=== PATIENT | male | born 1985 | race Caucasian/White ===

== ENCOUNTER 2016-05-26 12:24 | Emergency (ER) | payer SELFPAY ==
[~2016-05-26 12:24] MED LIST: IBUP800T23 PO
[2016-05-26 12:25] VITALS: BP 132/77; PULSE 80; RESP 20; TEMP 97.6; O2SAT 100
== END 2016-05-26 14:00 | disposition left against medical advice (07) ==
LOC: NED 12:24
DX: R10.32 Left lower quadrant pain (principal)
CPT/HCPCS: 99281

== ENCOUNTER 2017-09-12 01:59 | Inpatient (IN) ==
[2017-09-12] MEDS ORDERED: fentaNYL Citrate Inj 100 MCG/2 ML Ampul ONE (02:05)
[2017-09-12 02:23] LABS: Baso # (Auto) 0.1 th/mm3 (0.0-0.2); Baso % (Auto) 0.3 % (0.0-2.0); Eos # (Auto) 0.2 th/mm3 (0.0-0.4); Hematocrit 43.5 % (39.0-51.0); Hemoglobin 15.1 gm/dL (13.0-17.0); Lymph # (Auto) 6.1 th/mm3 (1.0-4.8); Lymph % (Auto) 38.7 % (9.0-44.0); Mean Corpuscular HGB Conc 34.7 % (32.0-36.0); Mean Corpuscular Hemoglobin 30.3 pg (27.0-34.0); Mean Corpuscular Volume 87.2 fL (80.0-100.0); Mean Platelet Volume 7.3 fL (7.0-11.0); Mono # (Auto) 1.1 th/mm3 (0.0-0.9); Mono % (Auto) 7.1 % (0.0-8.0); Neut # (Auto) 8.3 th/mm3 (1.8-7.7); Neut % (Auto) 52.9 % (16.0-70.0); Platelet Count 352 th/mm3 (150-450); Red Blood Count 4.98 mil/mm3 (4.50-5.90); Red Cell Distribution Width 12.5 % (11.6-17.2); White Blood Count 15.6 th/mm3 (4.0-11.0)
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
[2017-09-12 02:35] LABS: Activated Partial Thrombo Time 22.5 sec (24.3-30.1); Prothrombin Time 10.5 sec (9.8-11.6)
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
[2017-09-12] MEDS ORDERED: Bisacodyl 10 MG Supp RECTAL PRN ×2 (03:03→05:30)
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
[2017-09-12] MEDS ORDERED: fentaNYL Citrate Inj 100 MCG/2 ML Ampul IV.PUSH PRN (03:30)
[2017-09-12] MEDS ORDERED: Chlorhexidine Gluconate 2% 1 Pack (2 Cloths) TOPICAL PRN (04:00)
[2017-09-12 04:01] LABS: Eosinophils 1 % (0-4); Lymphocytes 36 % (9-44); Monocytes 6 % (0-8); Platelet Estimate Normal (Normal); Platelet Morphology Normal (Normal); RBC Morphology Normal (Normal)
[2017-09-12] MEDS ORDERED: Post-op Orders (for Pharmacy) OTHER ONE (05:30)
[2017-09-12] MEDS ORDERED: Promethazine 25 MG Supp RECTAL PRN (05:30)
[2017-09-12] MEDS ORDERED: Naloxone Inj 0.4 MG/ML Vial IV.PUSH PRN (05:30)
[2017-09-12] MEDS: Chlorhexidine Gluconate 2% 1 Pack (2 Cloths) TOPICAL SCH (05:56)
[2017-09-12] MEDS ORDERED: ceFAZolin Inj 1,000 MG in Sodium Chlor 0.9% Inj 100 ML IV.SIG SCH (06:00)
[2017-09-12] MEDS ORDERED: Potassium Chlor 40 mEq Premix 40 MEQ/100 ML PIGGYBACK IV.SIG PRN ×2 (06:19)
[2017-09-12] MEDS ORDERED: Magnesium Oxide 400 MG Tablet PO PRN (06:19)
[2017-09-12] MEDS ORDERED: Potassium Phosphate 500 MG Soluble Tablet PO PRN ×2 (06:19)
[2017-09-12] MEDS ORDERED: Magnesium Sulfate Inj 4 GM in Sodium Chlor 0.9% Inj 92 ML IV.SIG PRN (06:19)
[2017-09-12] MEDS ORDERED: Sodium Phosphate Inj 30 MMOL in Sodium Chlor 0.9% Inj 250 ML IV.SIG PRN (06:19)
[2017-09-12] MEDS ORDERED: Potassium Phosphate Inj 30 MMOL in Sodium Chlor 0.9% Inj 250 ML IV.SIG PRN (06:19)
[2017-09-12] MEDS ORDERED: Magnesium Sulfate Inj 2 GM in Sodium Chlor 0.9% Inj 96 ML IV.SIG PRN (06:19)
[2017-09-12] MEDS ORDERED: Potassium Chloride 25 MEQ Effervescent Tablet PO PRN (06:19)
[2017-09-12] MEDS ORDERED: Ketamine Inj 500 MG/10 ML Vial ONE (06:49)
[2017-09-12 07:03] LABS: ABG Base Excess -10.1 mmol/L (-2-2); ABG PCO2 38 mmHg (38-42); ABG PO2 240 mmHG (61-120)
[2017-09-12 07:11] LABS: Baso % (Auto) 0.2 % (0.0-2.0); Hematocrit 40.6 % (39.0-51.0); Hemoglobin 13.7 gm/dL (13.0-17.0); Lymph # (Auto) 1.6 th/mm3 (1.0-4.8); Lymph % (Auto) 10.2 % (9.0-44.0); Mean Corpuscular HGB Conc 33.7 % (32.0-36.0); Mean Corpuscular Hemoglobin 29.9 pg (27.0-34.0); Mean Corpuscular Volume 88.6 fL (80.0-100.0); Mean Platelet Volume 7.1 fL (7.0-11.0); Mono # (Auto) 1.7 th/mm3 (0.0-0.9); Mono % (Auto) 10.8 % (0.0-8.0); Neut # (Auto) 12.4 th/mm3 (1.8-7.7); Neut % (Auto) 78.8 % (16.0-70.0); Platelet Count 302 th/mm3 (150-450); Red Blood Count 4.58 mil/mm3 (4.50-5.90); Red Cell Distribution Width 13.1 % (11.6-17.2); White Blood Count 15.7 th/mm3 (4.0-11.0)
[2017-09-12 07:38] LABS: Activated Partial Thrombo Time 24.3 sec (24.3-30.1)
[2017-09-12 07:40] LABS: Calcium 6.9 mg/dL (8.5-10.1); Carbon Dioxide 16.5 meq/L (21.0-32.0); Potassium 3.6 meq/L (3.5-5.1)
[2017-09-12] MEDS ORDERED: Ketamine Inj 50 MG/5 ML Syringe IV.PUSH ONE (07:46)
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
[2017-09-12] MEDS ORDERED: fentaNYL 10 mcg/mL Premix Drip 2,500 MCG/250 ML BAG IV.SIG PRN (08:46)
[2017-09-12] MEDS ORDERED: Propofol 1000 mg/100 ml Inj 1,000 MG/100 ML BOTTLE IV.CONT PRN (08:48)
[2017-09-12] MEDS ORDERED: Senna/Docusate Sodium 8.6/50 MG Tablet PO SCH ×2 (09:00)
[2017-09-12] MEDS ORDERED: Sodium Bicarbonate 8.4% Inj 50 MEQ/50 ML Syringe ONE (09:01)
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
[2017-09-12 09:30] LABS: Hematocrit 42.8 % (39.0-51.0); Hemoglobin 14.8 gm/dL (13.0-17.0); Mean Corpuscular HGB Conc 34.5 % (32.0-36.0); Mean Corpuscular Hemoglobin 30.2 pg (27.0-34.0); Mean Corpuscular Volume 87.5 fL (80.0-100.0); Mean Platelet Volume 7.3 fL (7.0-11.0); Platelet Count 283 th/mm3 (150-450); Red Blood Count 4.89 mil/mm3 (4.50-5.90); Red Cell Distribution Width 13.1 % (11.6-17.2); White Blood Count 6.9 th/mm3 (4.0-11.0)
[2017-09-12 09:48] LABS: Anion Gap 16 meq/L (5-15); Blood Urea Nitrogen 6 mg/dL (7-18); Calcium 6.3 mg/dL (8.5-10.1); Carbon Dioxide 21.4 meq/L (21.0-32.0); Chloride 110 meq/L (98-107); Glomerular Filtration Rate Greater Than 89 mL/min (>89); Glucose,Random 111 mg/dL (74-106); Potassium 3.9 meq/L (3.5-5.1); Sodium 147 meq/L (136-145)
[2017-09-12] MEDS: Chlorhexidine 0.12% Oral Kit 15 ML UDC OROPHARYNG SCH ×2 (10:04→21:11)
[2017-09-12] MEDS: fentaNYL 10 mcg/mL Premix Drip 2,500 MCG/250 ML BAG IV.SIG PRN (10:06)
[2017-09-12] MEDS: Propofol 1000 mg/100 ml Inj 1,000 MG/100 ML BOTTLE IV.CONT PRN (10:06)
[2017-09-12 10:08] LABS: Total Protein 4.3 g/dL (6.4-8.2)
[2017-09-12] MEDS: Enoxaparin Inj 40 MG/0.4 ML Syringe SQ SCH ×2 (10:17→10:21)
[2017-09-12] MEDS: Famotidine PF Inj 20 MG/2 ML Vial IV.PUSH SCH ×2 (10:17→21:12)
[2017-09-12] MEDS: Sod Chloride 0.9% Inj 1,000 ML IV.CONT SCH ×2 (10:17→17:04)
[2017-09-12] MEDS: Pantoprazole Inj 40 MG Vial IV.PUSH SCH ×2 (10:17→10:21)
[2017-09-12] MEDS: Piperacil/Tazo 4.5 GM Premix 4.5 GM/100 ML BAG IV.SIG SCH ×2 (10:19→17:41)
[2017-09-12 10:44] LABS: ABG Base Excess -2.9 mmol/L (-2-2); ABG PCO2 43 mmHg (38-42); ABG PO2 193 mmHg (61-120)
[2017-09-12] MEDS: Midazolam 50 MG/50 ML Inj 50 MG/50 ML BAG IV.CONT PRN ×3 (10:54→21:14)
[2017-09-12] MEDS ORDERED: RASS Change Order OTHER SCH (11:00)
[2017-09-12] MEDS: Multivitamin Inj 10 ML, Thiamine Inj 100 MG, Folic Acid Inj 1 MG in Dextrose 5%/NaCl 0.... IV.SIG SCH ×2 (11:23→11:24)
[2017-09-12] MEDS: Oral Hygiene Kit OROPHARYNG SCH ×2 (11:24→16:20)
[2017-09-12] MEDS ORDERED: Phenylephrine/NS 1000 MCG/10ML Syringe IV.PUSH ONE (12:00)
[2017-09-12] MEDS ORDERED: Normosol-R pH 7.4 Inj 3,000 ML IV.CONT ONE (12:00)
[2017-09-12] MEDS ORDERED: Succinylcholine Inj 100 MG/5 ML Syringe IV.PUSH ONE (12:00)
[2017-09-12] MEDS ORDERED: Lidocaine PF 1% Inj 5 ML Syringe INFILTRATN ONE (12:00)
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
[2017-09-12 14:33] LABS: Hematocrit 44.5 % (39.0-51.0); Hemoglobin 15.2 gm/dL (13.0-17.0)
[2017-09-12] MEDS: Sod Chloride 0.9% Inj 1,000 ML IV.SIG SCH ×2 (14:48→14:58)
[2017-09-12 19:43] LABS: Hematocrit 41.8 % (39.0-51.0); Hemoglobin 14.2 gm/dL (13.0-17.0)
[2017-09-13] MEDS: Piperacil/Tazo 4.5 GM Premix 4.5 GM/100 ML BAG IV.SIG SCH ×4 (00:44→18:00)
[2017-09-13] MEDS: fentaNYL 10 mcg/mL Premix Drip 2,500 MCG/250 ML BAG IV.SIG PRN ×2 (00:45→15:58)
[2017-09-13 04:37] LABS: Baso % (Auto) 0.1 % (0.0-2.0); Hematocrit 38.6 % (39.0-51.0); Hemoglobin 13.2 gm/dL (13.0-17.0); Lymph % (Auto) 9.4 % (9.0-44.0); Mean Corpuscular HGB Conc 34.1 % (32.0-36.0); Mean Corpuscular Volume 87.9 fL (80.0-100.0); Mean Platelet Volume 7.8 fL (7.0-11.0); Mono # (Auto) 1.7 th/mm3 (0.0-0.9); Neut # (Auto) 17.3 th/mm3 (1.8-7.7); Neut % (Auto) 82.5 % (16.0-70.0); Platelet Count 227 th/mm3 (150-450); Red Blood Count 4.39 mil/mm3 (4.50-5.90); Red Cell Distribution Width 13.3 % (11.6-17.2)
[2017-09-13 05:05] LABS: Calcium 6.4 mg/dL (8.5-10.1); Carbon Dioxide 24.3 meq/L (21.0-32.0); Potassium 4.5 meq/L (3.5-5.1)
[2017-09-13 05:24] LABS: Total Protein 4.6 g/dL (6.4-8.2)
[2017-09-13] MEDS: Oral Hygiene Kit OROPHARYNG SCH ×3 (05:42→15:59)
[2017-09-13] MEDS: Chlorhexidine Gluconate 2% 1 Pack (2 Cloths) TOPICAL SCH (05:44)
[2017-09-13 06:05] LABS: ABG Base Excess -1.9 mmol/L (-2-2); ABG PCO2 42 mmHg (38-42); ABG PO2 97 mmHg (61-120)
[2017-09-13] MEDS: Enoxaparin Inj 40 MG/0.4 ML Syringe SQ SCH (06:39)
[2017-09-13] MEDS: Midazolam 50 MG/50 ML Inj 50 MG/50 ML BAG IV.CONT PRN ×3 (07:11→23:57)
[2017-09-13] MEDS: Chlorhexidine 0.12% Oral Kit 15 ML UDC OROPHARYNG SCH ×2 (08:41→20:06)
[2017-09-13] MEDS: Sod Chloride 0.9% Inj 1,000 ML IV.CONT SCH ×2 (08:54→10:33)
[2017-09-13] MEDS: Famotidine PF Inj 20 MG/2 ML Vial IV.PUSH SCH ×2 (09:59→20:05)
[2017-09-13] MEDS: Multivitamin Inj 10 ML, Thiamine Inj 100 MG, Folic Acid Inj 1 MG in Dextrose 5%/NaCl 0.... IV.SIG SCH (10:32)
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
[2017-09-14] MEDS: Oral Hygiene Kit OROPHARYNG SCH ×4 (00:17→16:33)
[2017-09-14] MEDS: Piperacil/Tazo 4.5 GM Premix 4.5 GM/100 ML BAG IV.SIG SCH ×3 (01:38→21:08)
[2017-09-14] MEDS: Sod Chloride 0.9% Inj 1,000 ML IV.CONT SCH ×2 (01:41→16:33)
[2017-09-14] MEDS: Chlorhexidine Gluconate 2% 1 Pack (2 Cloths) TOPICAL SCH (05:44)
[2017-09-14] MEDS: Enoxaparin Inj 40 MG/0.4 ML Syringe SQ SCH (05:45)
[2017-09-14 05:50] LABS: ABG Base Excess 1.7 mmol/L (-2-2); ABG PCO2 40 mmHg (38-42); ABG PO2 175 mmHg (61-120)
[2017-09-14 06:16] LABS: Baso % (Auto) 0.2 % (0.0-2.0); Eos # (Auto) 0.1 th/mm3 (0.0-0.4); Eos % (Auto) 0.4 % (0.0-4.0); Hematocrit 27.9 % (39.0-51.0); Hemoglobin 9.6 gm/dL (13.0-17.0); Lymph # (Auto) 1.6 th/mm3 (1.0-4.8); Lymph % (Auto) 12.6 % (9.0-44.0); Mean Corpuscular HGB Conc 34.2 % (32.0-36.0); Mean Corpuscular Hemoglobin 29.9 pg (27.0-34.0); Mean Corpuscular Volume 87.4 fL (80.0-100.0); Mono # (Auto) 0.6 th/mm3 (0.0-0.9); Mono % (Auto) 4.3 % (0.0-8.0); Neut # (Auto) 10.6 th/mm3 (1.8-7.7); Neut % (Auto) 82.5 % (16.0-70.0); Platelet Count 151 th/mm3 (150-450); Red Blood Count 3.19 mil/mm3 (4.50-5.90); Red Cell Distribution Width 13.5 % (11.6-17.2); White Blood Count 12.8 th/mm3 (4.0-11.0)
[2017-09-14 06:39] LABS: Albumin 1.7 g/dL (3.4-5.0); Calcium 6.9 mg/dL (8.5-10.1); Carbon Dioxide 26.1 meq/L (21.0-32.0); Potassium 3.9 meq/L (3.5-5.1); Total Protein 4.4 g/dL (6.4-8.2)
[2017-09-14] MEDS: fentaNYL 10 mcg/mL Premix Drip 2,500 MCG/250 ML BAG IV.SIG PRN ×2 (08:42→21:33)
[2017-09-14] MEDS: Famotidine PF Inj 20 MG/2 ML Vial IV.PUSH SCH ×2 (08:42→21:08)
[2017-09-14] MEDS: Midazolam 50 MG/50 ML Inj 50 MG/50 ML BAG IV.CONT PRN ×3 (08:44→19:45)
[2017-09-14] MEDS: Chlorhexidine 0.12% Oral Kit 15 ML UDC OROPHARYNG SCH ×2 (08:45→21:10)
[2017-09-14] MEDS ORDERED: Sodium Chlor 0.9% Inj 250 ML IV.SIG SCH (10:00)
[2017-09-14] MEDS: Propofol 1000 mg/100 ml Inj 1,000 MG/100 ML BOTTLE IV.CONT PRN (10:32)
[2017-09-14] MEDS ORDERED: Ketamine Inj 50 MG/5 ML Syringe IV.PUSH ONE ×2 (11:46→11:47)
[2017-09-14 15:48] LABS: Hematocrit 38.9 % (39.0-51.0); Hemoglobin 13.2 gm/dL (13.0-17.0)
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
[2017-09-15] MEDS: Oral Hygiene Kit OROPHARYNG SCH ×4 (00:04→17:47)
[2017-09-15] MEDS: Midazolam 50 MG/50 ML Inj 50 MG/50 ML BAG IV.CONT PRN ×3 (00:05→17:47)
[2017-09-15] MEDS: Piperacil/Tazo 4.5 GM Premix 4.5 GM/100 ML BAG IV.SIG SCH (01:47)
[2017-09-15] MEDS: Propofol 1000 mg/100 ml Inj 1,000 MG/100 ML BOTTLE IV.CONT PRN ×2 (01:48→17:58)
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
[2017-09-15] MEDS: Sod Chloride 0.9% Inj 1,000 ML IV.CONT SCH ×3 (05:16→19:32)
[2017-09-15] MEDS: Chlorhexidine Gluconate 2% 1 Pack (2 Cloths) TOPICAL SCH (05:16)
[2017-09-15 05:43] LABS: Baso % (Auto) 0.2 % (0.0-2.0); Eos # (Auto) 0.1 th/mm3 (0.0-0.4); Eos % (Auto) 0.6 % (0.0-4.0); Hematocrit 35.5 % (39.0-51.0); Hemoglobin 12.1 gm/dL (13.0-17.0); Lymph # (Auto) 1.4 th/mm3 (1.0-4.8); Lymph % (Auto) 8.3 % (9.0-44.0); Mean Corpuscular Hemoglobin 29.6 pg (27.0-34.0); Mean Platelet Volume 7.6 fL (7.0-11.0); Mono # (Auto) 1.1 th/mm3 (0.0-0.9); Mono % (Auto) 6.2 % (0.0-8.0); Neut # (Auto) 14.5 th/mm3 (1.8-7.7); Neut % (Auto) 84.7 % (16.0-70.0); Platelet Count 189 th/mm3 (150-450); Red Blood Count 4.08 mil/mm3 (4.50-5.90); Red Cell Distribution Width 13.8 % (11.6-17.2)
[2017-09-15 06:01] LABS: ABG Base Excess 1.1 mmol/L (-2-2); ABG PCO2 38 mmHg (38-42); ABG PO2 93 mmHg (61-120)
[2017-09-15 06:07] LABS: Albumin 1.6 g/dL (3.4-5.0); Calcium 7.1 mg/dL (8.5-10.1); Carbon Dioxide 25.6 meq/L (21.0-32.0); Potassium 3.5 meq/L (3.5-5.1); Total Protein 4.6 g/dL (6.4-8.2)
[2017-09-15] MEDS: Enoxaparin Inj 40 MG/0.4 ML Syringe SQ SCH (06:42)
[2017-09-15] MEDS: Potassium Chlor 20 mEq Premix 20 MEQ/100 ML PIGGYBACK IV.SIG PRN ×2 (07:06→09:37)
[2017-09-15] MEDS: Chlorhexidine 0.12% Oral Kit 15 ML UDC OROPHARYNG SCH ×2 (09:37→19:32)
[2017-09-15] MEDS: Famotidine PF Inj 20 MG/2 ML Vial IV.PUSH SCH ×2 (09:38→20:11)
[2017-09-15] MEDS: fentaNYL 10 mcg/mL Premix Drip 2,500 MCG/250 ML BAG IV.SIG PRN (10:59)
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
[2017-09-15] MEDS: Piperacil/Tazo 3.375 GM Premix 50 ML IV.SIG SCH ×2 (14:40→20:10)
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
[2017-09-16] MEDS: fentaNYL 10 mcg/mL Premix Drip 2,500 MCG/250 ML BAG IV.SIG PRN ×2 (00:25→13:04)
[2017-09-16] MEDS: Oral Hygiene Kit OROPHARYNG SCH ×4 (00:26→16:00)
[2017-09-16] MEDS: Piperacil/Tazo 3.375 GM Premix 50 ML IV.SIG SCH ×4 (01:15→21:00)
[2017-09-16 03:47] LABS: ABG Base Excess -1.3 mmol/L (-2-2); ABG PCO2 33 mmHg (38-42); ABG PO2 124 mmHg (61-120)
[2017-09-16 05:07] LABS: Baso % (Auto) 0.1 % (0.0-2.0); Eos # (Auto) 0.2 th/mm3 (0.0-0.4); Eos % (Auto) 1.5 % (0.0-4.0); Hematocrit 31.4 % (39.0-51.0); Hemoglobin 10.5 gm/dL (13.0-17.0); Lymph # (Auto) 1.4 th/mm3 (1.0-4.8); Lymph % (Auto) 8.3 % (9.0-44.0); Mean Corpuscular HGB Conc 33.5 % (32.0-36.0); Mean Corpuscular Hemoglobin 29.6 pg (27.0-34.0); Mean Corpuscular Volume 88.2 fL (80.0-100.0); Mean Platelet Volume 7.5 fL (7.0-11.0); Mono # (Auto) 1.3 th/mm3 (0.0-0.9); Mono % (Auto) 7.8 % (0.0-8.0); Neut # (Auto) 13.4 th/mm3 (1.8-7.7); Neut % (Auto) 82.3 % (16.0-70.0); Platelet Count 203 th/mm3 (150-450); Red Blood Count 3.56 mil/mm3 (4.50-5.90); Red Cell Distribution Width 13.9 % (11.6-17.2); White Blood Count 16.3 th/mm3 (4.0-11.0)
[2017-09-16 05:09] LABS: Alanine Aminotransferase 29 U/L (12-78); Albumin 1.5 g/dL (3.4-5.0); Alkaline Phosphatase 73 U/L (45-117); Anion Gap 10 meq/L (5-15); Aspartate Aminotransferase 37 U/L (15-37); Blood Urea Nitrogen 11 mg/dL (7-18); Calcium 7.3 mg/dL (8.5-10.1); Carbon Dioxide 23.2 meq/L (21.0-32.0); Chloride 112 meq/L (98-107); Glomerular Filtration Rate Greater Than 89 mL/min (>89); Glucose,Random 88 mg/dL (74-106); Potassium 3.5 meq/L (3.5-5.1); Sodium 145 meq/L (136-145); Total Protein 4.8 g/dL (6.4-8.2)
[2017-09-16] MEDS: Chlorhexidine Gluconate 2% 1 Pack (2 Cloths) TOPICAL SCH (05:15)
[2017-09-16] MEDS: Propofol 1000 mg/100 ml Inj 1,000 MG/100 ML BOTTLE IV.CONT PRN ×2 (05:16→20:23)
[2017-09-16] MEDS: Enoxaparin Inj 40 MG/0.4 ML Syringe SQ SCH ×2 (05:16→20:22)
[2017-09-16] MEDS: Sod Chloride 0.9% Inj 1,000 ML IV.CONT SCH (06:41)
[2017-09-16 07:38] LABS: Eosinophils 2 % (0-4); Lymphocytes 7 % (9-44); Monocytes 3 % (0-8); Myelocytes 1 % (0-0)
[2017-09-16 07:39] LABS: Platelet Estimate Normal (Normal); Platelet Morphology Normal (Normal); RBC Morphology Normal (Normal)
[2017-09-16] MEDS: Chlorhexidine 0.12% Oral Kit 15 ML UDC OROPHARYNG SCH ×2 (08:51→20:00)
[2017-09-16] MEDS: Famotidine PF Inj 20 MG/2 ML Vial IV.PUSH SCH ×2 (08:51→20:20)
[2017-09-16] MEDS: Potassium Chlor 20 mEq Premix 20 MEQ/100 ML PIGGYBACK IV.SIG PRN ×2 (08:53→12:56)
[2017-09-16] MEDS: Dextrose 5%/Lactated Ringer's 1,000 ML IV.CONT SCH ×2 (10:11→19:45)
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
[2017-09-17] MEDS: fentaNYL 10 mcg/mL Premix Drip 2,500 MCG/250 ML BAG IV.SIG PRN (01:35)
[2017-09-17] MEDS: Piperacil/Tazo 3.375 GM Premix 50 ML IV.SIG SCH ×4 (01:43→21:24)
[2017-09-17] MEDS: Oral Hygiene Kit OROPHARYNG SCH ×2 (04:00)
[2017-09-17] MEDS: Propofol 1000 mg/100 ml Inj 1,000 MG/100 ML BOTTLE IV.CONT PRN (04:20)
[2017-09-17 04:28] LABS: Baso % (Auto) 0.1 % (0.0-2.0); Eos # (Auto) 0.3 th/mm3 (0.0-0.4); Hemoglobin 10.2 gm/dL (13.0-17.0); Lymph # (Auto) 1.4 th/mm3 (1.0-4.8); Lymph % (Auto) 11.3 % (9.0-44.0); Mean Corpuscular HGB Conc 34.1 % (32.0-36.0); Mean Corpuscular Hemoglobin 29.9 pg (27.0-34.0); Mean Corpuscular Volume 87.5 fL (80.0-100.0); Mean Platelet Volume 7.1 fL (7.0-11.0); Mono # (Auto) 1.3 th/mm3 (0.0-0.9); Mono % (Auto) 10.5 % (0.0-8.0); Neut # (Auto) 9.6 th/mm3 (1.8-7.7); Neut % (Auto) 76.1 % (16.0-70.0); Platelet Count 196 th/mm3 (150-450); Red Blood Count 3.43 mil/mm3 (4.50-5.90); Red Cell Distribution Width 13.8 % (11.6-17.2); White Blood Count 12.7 th/mm3 (4.0-11.0)
[2017-09-17 05:13] LABS: Alanine Aminotransferase 27 U/L (12-78); Albumin 1.6 g/dL (3.4-5.0); Alkaline Phosphatase 100 U/L (45-117); Anion Gap 9 meq/L (5-15); Aspartate Aminotransferase 33 U/L (15-37); Blood Urea Nitrogen 6 mg/dL (7-18); Calcium 7.1 mg/dL (8.5-10.1); Carbon Dioxide 25.9 meq/L (21.0-32.0); Chloride 109 meq/L (98-107); Glomerular Filtration Rate Greater Than 89 mL/min (>89); Glucose,Random 150 mg/dL (74-106); Potassium 3.2 meq/L (3.5-5.1); Sodium 144 meq/L (136-145); Total Protein 4.9 g/dL (6.4-8.2)
[2017-09-17 06:02] LABS: ABG Base Excess 2.7 mmol/L (-2-2); ABG PCO2 40 mmHg (38-42); ABG PO2 62 mmHg (61-120)
[2017-09-17] MEDS ORDERED: Morphine Inj 4 MG/ML Vial IV.PUSH PRN (07:25)
[2017-09-17 07:29] LABS: Eosinophils 3 % (0-4); Lymphocytes 4 % (9-44); Monocytes 12 % (0-8); Myelocytes 2 % (0-0)
[2017-09-17 07:30] LABS: Platelet Estimate Normal (Normal); Platelet Morphology Normal (Normal); RBC Morphology Normal (Normal)
[2017-09-17] MEDS: Potassium Chlor 20 mEq Premix 20 MEQ/100 ML PIGGYBACK IV.SIG PRN ×4 (08:03→14:35)
[2017-09-17] MEDS: Dextrose 5%/Lactated Ringer's 1,000 ML IV.CONT SCH ×2 (08:03→17:10)
[2017-09-17] MEDS: Chlorhexidine 0.12% Oral Kit 15 ML UDC OROPHARYNG SCH ×2 (08:25→21:25)
[2017-09-17] MEDS: Famotidine PF Inj 20 MG/2 ML Vial IV.PUSH SCH ×2 (09:37→21:24)
[2017-09-17] MEDS: Enoxaparin Inj 40 MG/0.4 ML Syringe SQ SCH ×2 (09:38→21:23)
[2017-09-17] MEDS ORDERED: fentaNYL Citrate Inj 100 MCG/2 ML Ampul ONE (10:40)
[2017-09-17] MEDS ORDERED: fentaNYL Citrate Inj 100 MCG/2 ML Ampul IV.PUSH ONE ×2 (10:45→11:25)
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
[2017-09-17] MEDS ORDERED: Midazolam Inj 5 MG/ML 1 ML Vial ONE (11:32)
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
[2017-09-17] MEDS: Morphine Inj 4 MG/ML Vial IV.PUSH PRN ×4 (13:38→21:33)
[2017-09-17] MEDS: Haloperidol Inj 5 MG/ML Ampul IM PRN ×2 (14:34→23:42)
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
[2017-09-17] MEDS ORDERED: QUEtiapine 25 MG Tablet NG/OG SCH (21:00)
[2017-09-18] MEDS: Morphine Inj 4 MG/ML Vial IV.PUSH PRN ×5 (01:17→17:37)
[2017-09-18] MEDS: Piperacil/Tazo 3.375 GM Premix 50 ML IV.SIG SCH ×3 (01:17→14:38)
[2017-09-18] MEDS: Dextrose 5%/Lactated Ringer's 1,000 ML IV.CONT SCH ×3 (02:56→23:57)
[2017-09-18 06:28] LABS: ABG Base Excess 4.4 mmol/L (-2-2); ABG PCO2 46 mmHg (38-42); ABG PO2 189 mmHg (61-120)
[2017-09-18] MEDS: Chlorhexidine 0.12% Oral Kit 15 ML UDC OROPHARYNG SCH ×2 (07:56→20:54)
[2017-09-18] MEDS: Enoxaparin Inj 40 MG/0.4 ML Syringe SQ SCH ×2 (08:12→20:54)
[2017-09-18] MEDS: Famotidine PF Inj 20 MG/2 ML Vial IV.PUSH SCH ×2 (08:12→20:55)
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
[2017-09-18] MEDS: QUEtiapine 25 MG Tablet NG/OG SCH ×2 (11:16→14:51)
[2017-09-18 13:10] LABS: Baso % (Auto) 0.3 % (0.0-2.0); Eos # (Auto) 0.1 th/mm3 (0.0-0.4); Eos % (Auto) 0.8 % (0.0-4.0); Hematocrit 31.6 % (39.0-51.0); Hemoglobin 10.6 gm/dL (13.0-17.0); Lymph # (Auto) 1.2 th/mm3 (1.0-4.8); Lymph % (Auto) 8.7 % (9.0-44.0); Mean Corpuscular HGB Conc 33.5 % (32.0-36.0); Mean Corpuscular Volume 86.5 fL (80.0-100.0); Mean Platelet Volume 7.4 fL (7.0-11.0); Mono # (Auto) 1.3 th/mm3 (0.0-0.9); Mono % (Auto) 9.6 % (0.0-8.0); Neut # (Auto) 10.7 th/mm3 (1.8-7.7); Neut % (Auto) 80.6 % (16.0-70.0); Platelet Count 279 th/mm3 (150-450); Red Blood Count 3.65 mil/mm3 (4.50-5.90); Red Cell Distribution Width 13.7 % (11.6-17.2); White Blood Count 13.3 th/mm3 (4.0-11.0)
[2017-09-18 13:39] LABS: Alanine Aminotransferase 44 U/L (12-78); Albumin 2.1 g/dL (3.4-5.0); Alkaline Phosphatase 139 U/L (45-117); Anion Gap 11 meq/L (5-15); Aspartate Aminotransferase 57 U/L (15-37); Blood Urea Nitrogen 5 mg/dL (7-18); Calcium 8.1 mg/dL (8.5-10.1); Carbon Dioxide 27.9 meq/L (21.0-32.0); Chloride 104 meq/L (98-107); Glomerular Filtration Rate Greater Than 89 mL/min (>89); Glucose,Random 103 mg/dL (74-106); Potassium 4.1 meq/L (3.5-5.1); Sodium 143 meq/L (136-145); Total Protein 5.9 g/dL (6.4-8.2)
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
[2017-09-18 14:08] LABS: Lymphocytes 7 % (9-44); Metamyelocytes 1 % (0-1); Monocytes 8 % (0-8); Platelet Morphology Normal (Normal); RBC Morphology Normal (Normal)
[2017-09-18 14:09] LABS: Platelet Estimate Normal (Normal)
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
[2017-09-18] MEDS ORDERED: Melatonin 5 MG Tablet PO SCH (21:00)
[2017-09-18] MEDS ORDERED: QUEtiapine 25 MG Tablet PO SCH (21:00)
[2017-09-19 05:12] LABS: Baso % (Auto) 0.1 % (0.0-2.0); Eos # (Auto) 0.1 th/mm3 (0.0-0.4); Eos % (Auto) 0.4 % (0.0-4.0); Hematocrit 31.8 % (39.0-51.0); Hemoglobin 10.8 gm/dL (13.0-17.0); Lymph # (Auto) 1.1 th/mm3 (1.0-4.8); Lymph % (Auto) 7.1 % (9.0-44.0); Mean Corpuscular HGB Conc 33.8 % (32.0-36.0); Mean Corpuscular Hemoglobin 29.2 pg (27.0-34.0); Mean Corpuscular Volume 86.4 fL (80.0-100.0); Mono # (Auto) 1.6 th/mm3 (0.0-0.9); Mono % (Auto) 10.5 % (0.0-8.0); Neut # (Auto) 12.6 th/mm3 (1.8-7.7); Neut % (Auto) 81.9 % (16.0-70.0); Platelet Count 363 th/mm3 (150-450); Red Blood Count 3.69 mil/mm3 (4.50-5.90); Red Cell Distribution Width 13.6 % (11.6-17.2); White Blood Count 15.4 th/mm3 (4.0-11.0)
[2017-09-19 06:09] LABS: ABG PCO2 41 mmHg (38-42); ABG PO2 71 mmHg (61-120)
[2017-09-19 06:21] LABS: Alanine Aminotransferase 47 U/L (12-78); Anion Gap 12 meq/L (5-15); Aspartate Aminotransferase 46 U/L (15-37); Blood Urea Nitrogen 6 mg/dL (7-18); Calcium 8.1 mg/dL (8.5-10.1); Chloride 104 meq/L (98-107); Glomerular Filtration Rate Greater Than 89 mL/min (>89); Glucose,Random 132 mg/dL (74-106); Potassium 3.8 meq/L (3.5-5.1); Sodium 142 meq/L (136-145)
[2017-09-19 06:24] LABS: Alkaline Phosphatase 154 U/L (45-117); Total Protein 6.2 g/dL (6.4-8.2)
[2017-09-19] MEDS: QUEtiapine 25 MG Tablet NG/OG SCH ×2 (08:24→09:24)
[2017-09-19] MEDS: Chlorhexidine 0.12% Oral Kit 15 ML UDC OROPHARYNG SCH ×2 (08:25→22:14)
[2017-09-19] MEDS: Dextrose 5%/Lactated Ringer's 1,000 ML IV.CONT SCH (08:26)
[2017-09-19] MEDS: Famotidine PF Inj 20 MG/2 ML Vial IV.PUSH SCH ×2 (09:24→22:22)
[2017-09-19] MEDS: Enoxaparin Inj 40 MG/0.4 ML Syringe SQ SCH ×2 (09:24→22:21)
[2017-09-19] MEDS ORDERED: ALPRAZolam 0.25 MG Tablet PO PRN (09:49)
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
[2017-09-19] MEDS: Dextrose 5%/Lactated Ringer's 1,000 ML IV.SIG SCH (18:13)
[2017-09-19] MEDS: Melatonin 5 MG Tablet PO SCH (22:14)
[2017-09-20] MEDS: Dextrose 5%/Lactated Ringer's 1,000 ML IV.SIG SCH ×2 (06:19→18:49)
[2017-09-20] MEDS: Chlorhexidine 0.12% Oral Kit 15 ML UDC OROPHARYNG SCH ×2 (08:16→21:49)
[2017-09-20 08:21] LABS: Baso # (Auto) 0.1 th/mm3 (0.0-0.2); Baso % (Auto) 0.3 % (0.0-2.0); Eos # (Auto) 0.1 th/mm3 (0.0-0.4); Eos % (Auto) 0.3 % (0.0-4.0); Hematocrit 36.5 % (39.0-51.0); Hemoglobin 12.1 gm/dL (13.0-17.0); Lymph # (Auto) 1.7 th/mm3 (1.0-4.8); Lymph % (Auto) 7.2 % (9.0-44.0); Mean Corpuscular HGB Conc 33.2 % (32.0-36.0); Mean Corpuscular Hemoglobin 28.8 pg (27.0-34.0); Mean Corpuscular Volume 86.9 fL (80.0-100.0); Mean Platelet Volume 7.2 fL (7.0-11.0); Mono # (Auto) 2.4 th/mm3 (0.0-0.9); Mono % (Auto) 10.1 % (0.0-8.0); Neut # (Auto) 19.7 th/mm3 (1.8-7.7); Neut % (Auto) 82.1 % (16.0-70.0); Platelet Count 519 th/mm3 (150-450)
[2017-09-20] MEDS: Enoxaparin Inj 40 MG/0.4 ML Syringe SQ SCH ×2 (09:00→21:58)
[2017-09-20] MEDS: Famotidine PF Inj 20 MG/2 ML Vial IV.PUSH SCH ×2 (09:00→21:57)
[2017-09-20 09:08] LABS: Albumin 2.2 g/dL (3.4-5.0); Anion Gap 12 meq/L (5-15); Aspartate Aminotransferase 59 U/L (15-37); Blood Urea Nitrogen 15 mg/dL (7-18); Calcium 8.1 mg/dL (8.5-10.1); Carbon Dioxide 26.3 meq/L (21.0-32.0); Chloride 105 meq/L (98-107); Glomerular Filtration Rate Greater Than 89 mL/min (>89); Glucose,Random 163 mg/dL (74-106); Potassium 3.6 meq/L (3.5-5.1); Sodium 143 meq/L (136-145)
[2017-09-20 09:12] LABS: Alanine Aminotransferase 72 U/L (12-78); Alkaline Phosphatase 174 U/L (45-117); Total Protein 6.4 g/dL (6.4-8.2)
[2017-09-20 10:33] LABS: Lymphocytes 5 % (9-44); Monocytes 5 % (0-8); Myelocytes 3 % (0-0); Platelet Morphology Normal (Normal); Toxic Granulation 1+
[2017-09-20] MEDS ORDERED: Piperacil/Tazo 4.5 GM Premix 4.5 GM/100 ML BAG IV.SIG SCH (12:00)
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
[2017-09-20] MEDS: Melatonin 5 MG Tablet PO SCH (21:50)
[2017-09-21] MEDS: Dextrose 5%/Lactated Ringer's 1,000 ML IV.SIG SCH ×3 (06:26→20:44)
[2017-09-21] MEDS: Enoxaparin Inj 30 MG/0.3 ML Syringe SQ SCH ×2 (10:27→20:45)
[2017-09-21] MEDS: Famotidine PF Inj 20 MG/2 ML Vial IV.PUSH SCH ×2 (10:27→20:47)
[2017-09-21] MEDS: Chlorhexidine 0.12% Oral Kit 15 ML UDC OROPHARYNG SCH ×2 (10:27→20:44)
[2017-09-21 10:47] LABS: Baso # (Auto) 0.1 th/mm3 (0.0-0.2); Baso % (Auto) 0.2 % (0.0-2.0); Eos # (Auto) 0.1 th/mm3 (0.0-0.4); Eos % (Auto) 0.6 % (0.0-4.0); Hematocrit 34.8 % (39.0-51.0); Hemoglobin 11.4 gm/dL (13.0-17.0); Lymph # (Auto) 2.5 th/mm3 (1.0-4.8); Lymph % (Auto) 10.8 % (9.0-44.0); Mean Corpuscular HGB Conc 32.9 % (32.0-36.0); Mean Corpuscular Hemoglobin 29.1 pg (27.0-34.0); Mean Corpuscular Volume 88.5 fL (80.0-100.0); Mean Platelet Volume 7.4 fL (7.0-11.0); Mono # (Auto) 2.2 th/mm3 (0.0-0.9); Mono % (Auto) 9.8 % (0.0-8.0); Neut % (Auto) 78.6 % (16.0-70.0); Platelet Count 621 th/mm3 (150-450); Red Blood Count 3.93 mil/mm3 (4.50-5.90); Red Cell Distribution Width 14.2 % (11.6-17.2); White Blood Count 22.8 th/mm3 (4.0-11.0)
[2017-09-21 11:00] LABS: Albumin 2.4 g/dL (3.4-5.0); Anion Gap 9 meq/L (5-15); Aspartate Aminotransferase 169 U/L (15-37); Blood Urea Nitrogen 14 mg/dL (7-18); Carbon Dioxide 28.3 meq/L (21.0-32.0); Chloride 109 meq/L (98-107); Glomerular Filtration Rate 84 mL/min (>89); Potassium 3.4 meq/L (3.5-5.1); Sodium 146 meq/L (136-145)
[2017-09-21 11:07] LABS: Alanine Aminotransferase 223 U/L (12-78); Alkaline Phosphatase 178 U/L (45-117); Glucose,Random 152 mg/dL (74-106); Total Protein 6.7 g/dL (6.4-8.2)
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
[2017-09-21] MEDS ORDERED: Diatrizoate Meglum/Diatrizoate Sod Liq 9 ML UDC PO ONE (11:38)
[2017-09-21 11:41] LABS: Eosinophils 1 % (0-4); Lymphocytes 8 % (9-44); Monocytes 2 % (0-8); Myelocytes 1 % (0-0); Promyelocyte 1 % (0-0)
[2017-09-21 11:42] LABS: Platelet Morphology Normal (Normal)
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
[2017-09-21] MEDS: Ciprofloxacin 200 MG/100 ML 200 MG/100 ML PIGGYBACK IV.SIG SCH (13:01)
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
[2017-09-21] MEDS: Melatonin 5 MG Tablet PO SCH (20:46)
[2017-09-22] MEDS: Ciprofloxacin 200 MG/100 ML 200 MG/100 ML PIGGYBACK IV.SIG SCH ×2 (01:00→13:41)
[2017-09-22] MEDS: Dextrose 5%/Lactated Ringer's 1,000 ML IV.SIG SCH ×2 (05:52→19:28)
[2017-09-22 06:22] LABS: Baso % (Auto) 0.2 % (0.0-2.0); Eos # (Auto) 0.4 th/mm3 (0.0-0.4); Eos % (Auto) 1.7 % (0.0-4.0); Hematocrit 32.3 % (39.0-51.0); Hemoglobin 10.8 gm/dL (13.0-17.0); Lymph # (Auto) 2.9 th/mm3 (1.0-4.8); Lymph % (Auto) 13.8 % (9.0-44.0); Mean Corpuscular HGB Conc 33.5 % (32.0-36.0); Mean Corpuscular Hemoglobin 29.5 pg (27.0-34.0); Mean Corpuscular Volume 88.1 fL (80.0-100.0); Mean Platelet Volume 7.1 fL (7.0-11.0); Mono % (Auto) 9.7 % (0.0-8.0); Neut # (Auto) 15.6 th/mm3 (1.8-7.7); Neut % (Auto) 74.6 % (16.0-70.0); Platelet Count 642 th/mm3 (150-450); Red Blood Count 3.66 mil/mm3 (4.50-5.90); White Blood Count 20.9 th/mm3 (4.0-11.0)
[2017-09-22 06:33] LABS: Albumin 2.2 g/dL (3.4-5.0); Anion Gap 11 meq/L (5-15); Aspartate Aminotransferase 113 U/L (15-37); Blood Urea Nitrogen 11 mg/dL (7-18); Calcium 7.9 mg/dL (8.5-10.1); Carbon Dioxide 25.4 meq/L (21.0-32.0); Chloride 105 meq/L (98-107); Glomerular Filtration Rate Greater Than 89 mL/min (>89); Glucose,Random 123 mg/dL (74-106); Potassium 3.1 meq/L (3.5-5.1); Sodium 141 meq/L (136-145)
[2017-09-22 06:34] LABS: Alanine Aminotransferase 229 U/L (12-78)
[2017-09-22 06:36] LABS: Alkaline Phosphatase 159 U/L (45-117); Total Protein 6.3 g/dL (6.4-8.2)
[2017-09-22] MEDS: Chlorhexidine 0.12% Oral Kit 15 ML UDC OROPHARYNG SCH ×2 (08:52→19:13)
[2017-09-22] MEDS: Enoxaparin Inj 30 MG/0.3 ML Syringe SQ SCH ×2 (08:54→20:06)
[2017-09-22] MEDS: Potassium Chlor 20 mEq Premix 20 MEQ/100 ML PIGGYBACK IV.SIG SCH ×2 (08:54→11:20)
[2017-09-22] MEDS: Famotidine PF Inj 20 MG/2 ML Vial IV.PUSH SCH ×2 (09:16→20:06)
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
--- NOTE | 2017-09-22 11:36 | P.PNWCN ---
Wound/Pressure Injury - Wound Midline abdomen Wound Assessment: Ongoing Wound Type: Traumatic Wound Is This a Chronic Wound: No Requested from Provider a Wound Care Consult: No Length: 19 Width: 5.4 Depth: 2.1 Wound Bed Appearance: [place], Red, White Surrounding Tissue Temperature: Cool Drainage Description: Serosanguinous Drainage Amount: Moderate Dressing Status: Changed Wound Packing Type: Woundvac Sponge Support Dressing: Abdominal Binder Wound Dressing Change Date: 09/22/17 Wound Vac - Wound Vac Right Abdomen Other Foam Type: Adaptic gauze Midline abdomen Pressure Setting (mmHg): 125 (mmHg) Mode Setting: Continuous Drainage Description: Serosanguinous Foam type: Black Other Foam Type: Adaptic gauze - Additional Information Patient was seen today by screenplay writer for Wound vac management.Patient refused medication prior to screenplay writer arrival.Patient alert in bed .Dressing removed from midline abdomen with out difficulty.Wound cleansed with normal saline pat dry .Skin prep applied to periwound and drape applied to intact skin 2 pieces of adaptic gauze placed in wound base and 2 piece of black foam applied over and secured with drape.Track pad applied on distal wound and suction started @ 125 mmHg low continuous suction with no leaks noted. Wound Drain - Drain Medial Abdomen Hemovac Drainage Description: Serosanguinous # 1 Right Abdomen Drainage Description: Yellow Drainage Odor: None/Absent - Additional Information Dressing changed to right abdomen LORENA drain Optifoam [employer] split and applied please change daily.
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
[2017-09-22] MEDS: Melatonin 5 MG Tablet PO SCH (20:06)
[2017-09-23] MEDS: Ciprofloxacin 200 MG/100 ML 200 MG/100 ML PIGGYBACK IV.SIG SCH ×3 (00:36→20:17)
[2017-09-23] MEDS: Dextrose 5%/Lactated Ringer's 1,000 ML IV.SIG SCH ×3 (03:12→23:56)
[2017-09-23 05:08] LABS: Baso # (Auto) 0.1 th/mm3 (0.0-0.2); Baso % (Auto) 0.3 % (0.0-2.0); Eos # (Auto) 0.3 th/mm3 (0.0-0.4); Eos % (Auto) 1.6 % (0.0-4.0); Hemoglobin 11.6 gm/dL (13.0-17.0); Lymph # (Auto) 2.8 th/mm3 (1.0-4.8); Lymph % (Auto) 14.5 % (9.0-44.0); Mean Corpuscular HGB Conc 33.2 % (32.0-36.0); Mean Corpuscular Hemoglobin 28.8 pg (27.0-34.0); Mean Corpuscular Volume 86.8 fL (80.0-100.0); Mean Platelet Volume 7.6 fL (7.0-11.0); Mono # (Auto) 2.2 th/mm3 (0.0-0.9); Mono % (Auto) 11.3 % (0.0-8.0); Neut # (Auto) 14.1 th/mm3 (1.8-7.7); Neut % (Auto) 72.3 % (16.0-70.0); Platelet Count 703 th/mm3 (150-450); Red Blood Count 4.03 mil/mm3 (4.50-5.90); White Blood Count 19.5 th/mm3 (4.0-11.0)
[2017-09-23 05:32] LABS: Albumin 2.4 g/dL (3.4-5.0); Anion Gap 13 meq/L (5-15); Aspartate Aminotransferase 130 U/L (15-37); Blood Urea Nitrogen 8 mg/dL (7-18); Calcium 8.3 mg/dL (8.5-10.1); Carbon Dioxide 25.2 meq/L (21.0-32.0); Chloride 104 meq/L (98-107); Glomerular Filtration Rate Greater Than 89 mL/min (>89); Glucose,Random 131 mg/dL (74-106); Potassium 3.3 meq/L (3.5-5.1); Sodium 142 meq/L (136-145)
[2017-09-23 05:34] LABS: Alanine Aminotransferase 263 U/L (12-78)
[2017-09-23 05:35] LABS: Alkaline Phosphatase 178 U/L (45-117); Total Protein 6.6 g/dL (6.4-8.2)
[2017-09-23] MEDS ORDERED: Mag Sulf 1 gm/100 ml Premix 100 ML IV.SIG ONE (09:00)
[2017-09-23 10:01] LABS: Lymphocytes 15 % (9-44); Monocytes 10 % (0-8); Promyelocyte 2 % (0-0)
[2017-09-23 10:06] LABS: Platelet Morphology Normal (Normal)
[2017-09-23] MEDS: Chlorhexidine 0.12% Oral Kit 15 ML UDC OROPHARYNG SCH (10:15)
[2017-09-23] MEDS: Enoxaparin Inj 30 MG/0.3 ML Syringe SQ SCH ×2 (10:15→22:15)
[2017-09-23] MEDS: Famotidine PF Inj 20 MG/2 ML Vial IV.PUSH SCH ×2 (10:16→22:16)
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
[2017-09-23] MEDS: Potassium Chlor 20 mEq Premix 20 MEQ/100 ML PIGGYBACK IV.SIG SCH ×2 (14:14→16:09)
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
[2017-09-23] MEDS: Melatonin 5 MG Tablet PO SCH (22:16)
[2017-09-24] MEDS: Ciprofloxacin 200 MG/100 ML 200 MG/100 ML PIGGYBACK IV.SIG SCH ×4 (02:30→17:40)
[2017-09-24 05:51] LABS: Albumin 2.4 g/dL (3.4-5.0); Anion Gap 9 meq/L (5-15); Aspartate Aminotransferase 131 U/L (15-37); Blood Urea Nitrogen 9 mg/dL (7-18); Calcium 7.8 mg/dL (8.5-10.1); Carbon Dioxide 26.1 meq/L (21.0-32.0); Chloride 107 meq/L (98-107); Glomerular Filtration Rate Greater Than 89 mL/min (>89); Glucose,Random 112 mg/dL (74-106); Potassium 3.8 meq/L (3.5-5.1); Sodium 142 meq/L (136-145)
[2017-09-24 05:52] LABS: Alanine Aminotransferase 275 U/L (12-78)
[2017-09-24 05:53] LABS: Baso % (Auto) 0.2 % (0.0-2.0); Eos # (Auto) 0.4 th/mm3 (0.0-0.4); Eos % (Auto) 1.9 % (0.0-4.0); Hematocrit 33.9 % (39.0-51.0); Hemoglobin 11.3 gm/dL (13.0-17.0); Lymph # (Auto) 2.9 th/mm3 (1.0-4.8); Lymph % (Auto) 15.8 % (9.0-44.0); Mean Corpuscular HGB Conc 33.4 % (32.0-36.0); Mean Corpuscular Hemoglobin 29.2 pg (27.0-34.0); Mean Corpuscular Volume 87.5 fL (80.0-100.0); Mean Platelet Volume 7.8 fL (7.0-11.0); Mono # (Auto) 1.9 th/mm3 (0.0-0.9); Mono % (Auto) 10.4 % (0.0-8.0); Neut # (Auto) 13.3 th/mm3 (1.8-7.7); Neut % (Auto) 71.7 % (16.0-70.0); Platelet Count 705 th/mm3 (150-450); Red Blood Count 3.88 mil/mm3 (4.50-5.90); Red Cell Distribution Width 14.1 % (11.6-17.2); White Blood Count 18.5 th/mm3 (4.0-11.0)
[2017-09-24 05:54] LABS: Alkaline Phosphatase 199 U/L (45-117); Total Protein 6.7 g/dL (6.4-8.2)
[2017-09-24 08:03] LABS: Eosinophils 4 % (0-4); Lymphocytes 16 % (9-44); Monocytes 8 % (0-8); Platelet Morphology Normal (Normal); Promyelocyte 1 % (0-0); Toxic Granulation 1+
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
[2017-09-24] MEDS: Enoxaparin Inj 30 MG/0.3 ML Syringe SQ SCH ×2 (09:06→22:51)
[2017-09-24] MEDS: Famotidine PF Inj 20 MG/2 ML Vial IV.PUSH SCH ×2 (09:06→22:51)
[2017-09-24 13:08] LABS: Baso # (Auto) 0.1 th/mm3 (0.0-0.2); Baso % (Auto) 0.4 % (0.0-2.0); Eos # (Auto) 0.3 th/mm3 (0.0-0.4); Eos % (Auto) 1.9 % (0.0-4.0); Hematocrit 34.8 % (39.0-51.0); Hemoglobin 11.6 gm/dL (13.0-17.0); Lymph # (Auto) 2.7 th/mm3 (1.0-4.8); Lymph % (Auto) 14.9 % (9.0-44.0); Mean Corpuscular HGB Conc 33.4 % (32.0-36.0); Mean Corpuscular Volume 86.8 fL (80.0-100.0); Mean Platelet Volume 7.4 fL (7.0-11.0); Mono # (Auto) 2.1 th/mm3 (0.0-0.9); Mono % (Auto) 11.6 % (0.0-8.0); Neut # (Auto) 12.7 th/mm3 (1.8-7.7); Neut % (Auto) 71.2 % (16.0-70.0); Platelet Count 702 th/mm3 (150-450); White Blood Count 17.9 th/mm3 (4.0-11.0)
[2017-09-24 13:14] LABS: INR 1.1 Ratio; Prothrombin Time 11.5 sec (9.8-11.6)
[2017-09-24 13:31] LABS: Alanine Aminotransferase 262 U/L (12-78); Albumin 2.5 g/dL (3.4-5.0); Anion Gap 5 meq/L (5-15); Aspartate Aminotransferase 114 U/L (15-37); Blood Urea Nitrogen 8 mg/dL (7-18); Calcium 7.7 mg/dL (8.5-10.1); Carbon Dioxide 29.6 meq/L (21.0-32.0); Chloride 106 meq/L (98-107); Glomerular Filtration Rate Greater Than 89 mL/min (>89); Glucose,Random 95 mg/dL (74-106); Potassium 3.8 meq/L (3.5-5.1); Sodium 141 meq/L (136-145); Triglycerides 88 mg/dL (42-150)
[2017-09-24 13:34] LABS: Alkaline Phosphatase 199 U/L (45-117); Phosphorus 2.5 mg/dL (2.5-4.9); Total Protein 6.6 g/dL (6.4-8.2)
[2017-09-24 14:39] LABS: Eosinophils 2 % (0-4); Lymphocytes 11 % (9-44); Monocytes 15 % (0-8)
[2017-09-24 14:40] LABS: Platelet Morphology Normal (Normal)
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
[2017-09-24] MEDS ORDERED: fentaNYL Citrate Inj 100 MCG/2 ML Ampul ONE (15:39)
[2017-09-24] MEDS ORDERED: ceFAZolin 2 GM Premix Inj 2 GM/50 ML PIGGYBACK IV.SIG ONE (15:40)
[2017-09-24] MEDS ORDERED: Sodium Chlor 0.9% Inj 250 ML ONE (15:42)
[2017-09-24] MEDS: Dextrose 5%/Lactated Ringer's 1,000 ML IV.SIG SCH (16:01)
[2017-09-24] MEDS ORDERED: Heparin Central Flush 100 UNIT/ML 5 ML Vial IV.FLUSH ONE (16:24)
[2017-09-24] MEDS ORDERED: Lidocaine 1%/Epinephrine 1:100,000 Inj 20 ML Vial ONE (16:25)
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
[2017-09-24] MEDS ORDERED: Heparin Central Flush 100 UNIT/ML 5 ML Syringe IV.FLUSH PRN (18:30)
--- NOTE | 2017-09-24 18:37 | P.RAD ---
Post Procedure Progress Note - Procedure Information Supervising Radiologist: Gabriele Mello MD - Plan of Activity See PACS Report for procedural detail/treatment. [facility] Procedures - Additional Detail Findings: Right IJ kenyon catheter. Cerclage placed at chest wall dermatotomy
[2017-09-24] MEDS: Multivitamin Inj 5 ML, Folic Acid Inj 0.5 MG in AA 4.25 %/D25W - Electrolytes 1,000 ML IV.SIG SCH (22:48)
[2017-09-25] MEDS: Ciprofloxacin 200 MG/100 ML 200 MG/100 ML PIGGYBACK IV.SIG SCH ×2 (01:45→14:31)
[2017-09-25 04:27] LABS: Baso # (Auto) 0.1 th/mm3 (0.0-0.2); Baso % (Auto) 0.5 % (0.0-2.0); Eos # (Auto) 0.4 th/mm3 (0.0-0.4); Eos % (Auto) 2.4 % (0.0-4.0); Hematocrit 32.5 % (39.0-51.0); Hemoglobin 10.9 gm/dL (13.0-17.0); Lymph # (Auto) 2.6 th/mm3 (1.0-4.8); Mean Corpuscular HGB Conc 33.4 % (32.0-36.0); Mean Corpuscular Hemoglobin 29.3 pg (27.0-34.0); Mean Corpuscular Volume 87.7 fL (80.0-100.0); Mean Platelet Volume 8.1 fL (7.0-11.0); Mono # (Auto) 1.9 th/mm3 (0.0-0.9); Neut # (Auto) 9.5 th/mm3 (1.8-7.7); Neut % (Auto) 66.1 % (16.0-70.0); Platelet Count 653 th/mm3 (150-450); Red Blood Count 3.71 mil/mm3 (4.50-5.90); Red Cell Distribution Width 13.9 % (11.6-17.2); White Blood Count 14.4 th/mm3 (4.0-11.0)
[2017-09-25 05:57] LABS: Eosinophils 1 % (0-4); Lymphocytes 11 % (9-44); Monocytes 17 % (0-8); Myelocytes 1 % (0-0); Platelet Morphology Normal (Normal)
[2017-09-25 05:59] LABS: Helmet Cells Occ
[2017-09-25] MEDS: Famotidine PF Inj 20 MG/2 ML Vial IV.PUSH SCH ×2 (09:10→22:51)
[2017-09-25] MEDS: Enoxaparin Inj 30 MG/0.3 ML Syringe SQ SCH ×2 (09:11→22:51)
[2017-09-25] MEDS: Heparin Central Flush 100 UNIT/ML 5 ML Syringe IV.FLUSH SCH (09:11)
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
--- NOTE | 2017-09-25 15:10 | P.PNWCN ---
Wound/Pressure Injury - Patient Status Premedicated for Pain Prior to Dressing Change: No - Wound Right Abdomen Wound Assessment: Ongoing Wound Type: Puncture Is This a Chronic Wound: No Requested from Provider a Wound Care Consult: No Wound Bed Appearance: [place] Surrounding Tissue Appearance: [place] Surrounding Tissue Temperature: Warm Dressing Status: Dry & Intact Wound Packing Type: Gauze Pads Primary Dressing: Gauze Pad Cover Dressing: Adhesive Dressing Right Lower Abdomen Wound Assessment: Ongoing Wound Type: Traumatic Wound Is This a Chronic Wound: No Drainage Description: Serous Midline abdomen Length: 19 Width: 5.4 Depth: 2.1 Support Dressing: Abdominal Binder Wound Dressing Change Date: 09/25/17 Right Upper Abdomen Wound Assessment: Ongoing Wound Type: Traumatic Wound Is This a Chronic Wound: No Wound Bed Appearance: [place] Surrounding Tissue Temperature: Warm Drainage Amount: None Drainage Odor: No Odor Dressing Status: Open to Air Wound Vac - Wound Vac Right Abdomen Other Foam Type: Adaptic gauze Midline abdomen Pressure Setting (mmHg): 125 Mode Setting: Continuous Drainage Description: Serosanguinous Foam type: Black Other Foam Type: Adaptic gauze - Additional Information Patient was seen today by life underwriter for Wound vac management.Patient refused medication prior to life underwriter arrival.Patient alert in bed .Dressing removed from midline abdomen with out difficulty.Wound cleansed with normal saline pat dry .Measurements obtained wound currently measures 19.8cm x 4.7cm x 2.3cm wound base is 90% beefy red granular tissue 10% fascia.Patient noted to have 3 tunnels karen at proximal wound tunnels from proximal to distal tunnel #1 straight in depth 2.1cm , #2 3.2cm , #3 1.4cm.Scant white exudate noted . Skin prep applied to periwound and drape applied to intact skin 2 pieces of adaptic gauze placed in wound base and 2 piece of black foam applied over and secured with drape.Track pad applied on distal wound and suction started @ 125 mmHg low continuous suction with no leaks noted. Wound Drain - Drain Medial Abdomen Hemovac Drainage Description: Serosanguinous Drainage Odor: None/Absent # 1 Right Abdomen Drainage Description: Green Drainage Odor: Mild Odor - Additional Information Dressing changed to right abdomen LORENA drain Optifoam AG split and applied please change daily. Incision - Patient Status Premedicated for Pain Prior to Dressing Change: No - Incision Midline Chest Incision Type: Incision Incision Description: Open Primary Dressing: Negative Pressure Wound Dressing (1 sponge) Cover Dressing: Adhesive Dressing Right Chest Incision Type: Incision Primary Dressing: Gauze Pad Tape Type: medipore Midline Abdomen Incision Assessment: Ongoing Incision Type: Incision Drainage Amount: None Incision Dressing Status: Dry & Intact Incision Packing Type: Woundvac Sponge Primary Dressing: Transparent Support Dressing: Abdominal Binder
[2017-09-25] MEDS: Multivitamin Inj 5 ML, Folic Acid Inj 0.5 MG in AA 4.25 %/D25W - Electrolytes 1,000 ML IV.SIG SCH (22:50)
[2017-09-26] MEDS: Ciprofloxacin 200 MG/100 ML 200 MG/100 ML PIGGYBACK IV.SIG SCH ×2 (02:57→14:50)
[2017-09-26 06:28] LABS: Baso # (Auto) 0.1 th/mm3 (0.0-0.2); Baso % (Auto) 0.7 % (0.0-2.0); Eos # (Auto) 0.3 th/mm3 (0.0-0.4); Eos % (Auto) 2.2 % (0.0-4.0); Hematocrit 34.8 % (39.0-51.0); Hemoglobin 11.9 gm/dL (13.0-17.0); Lymph # (Auto) 2.4 th/mm3 (1.0-4.8); Lymph % (Auto) 16.9 % (9.0-44.0); Mean Corpuscular HGB Conc 34.2 % (32.0-36.0); Mean Corpuscular Volume 87.6 fL (80.0-100.0); Mean Platelet Volume 7.9 fL (7.0-11.0); Mono # (Auto) 1.9 th/mm3 (0.0-0.9); Mono % (Auto) 13.5 % (0.0-8.0); Neut # (Auto) 9.3 th/mm3 (1.8-7.7); Neut % (Auto) 66.7 % (16.0-70.0); Platelet Count 702 th/mm3 (150-450); Red Blood Count 3.98 mil/mm3 (4.50-5.90)
[2017-09-26 10:29] LABS: Eosinophils 3 % (0-4); Lymphocytes 16 % (9-44); Metamyelocytes 2 % (0-1); Monocytes 12 % (0-8); Myelocytes 3 % (0-0); Platelet Morphology Normal (Normal)
[2017-09-26 10:30] LABS: RBC Morphology Normal (Normal)
[2017-09-26] MEDS: Famotidine PF Inj 20 MG/2 ML Vial IV.PUSH SCH ×2 (10:34→20:43)
[2017-09-26] MEDS: Heparin Central Flush 100 UNIT/ML 5 ML Syringe IV.FLUSH SCH (10:35)
[2017-09-26] MEDS: Enoxaparin Inj 30 MG/0.3 ML Syringe SQ SCH ×2 (10:35→20:40)
[2017-09-26] MEDS: Multivitamin Inj 5 ML, Folic Acid Inj 0.5 MG in AA 4.25 %/D25W - Electrolytes 1,000 ML IV.SIG SCH ×2 (11:04→21:39)
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
[2017-09-26 15:15] LABS: Amylase, Body Fluid 62910 U/L; Fluid Type PERITONEAL; Lipase, Body Fluid 0 U/L
[2017-09-27] MEDS: Ciprofloxacin 200 MG/100 ML 200 MG/100 ML PIGGYBACK IV.SIG SCH ×2 (02:09→15:59)
[2017-09-27] MEDS: Heparin Central Flush 100 UNIT/ML 5 ML Syringe IV.FLUSH SCH (09:44)
[2017-09-27] MEDS: Enoxaparin Inj 30 MG/0.3 ML Syringe SQ SCH ×2 (09:44→21:52)
[2017-09-27] MEDS: Multivitamin Inj 5 ML, Folic Acid Inj 0.5 MG in AA 4.25 %/D25W - Electrolytes 1,000 ML IV.SIG SCH ×2 (09:45→21:31)
[2017-09-27] MEDS: Famotidine PF Inj 20 MG/2 ML Vial IV.PUSH SCH ×2 (11:40→21:50)
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
[2017-09-28] MEDS: Ciprofloxacin 200 MG/100 ML 200 MG/100 ML PIGGYBACK IV.SIG SCH (02:34)
[2017-09-28 04:22] LABS: Baso # (Auto) 0.2 th/mm3 (0.0-0.2); Baso % (Auto) 1.2 % (0.0-2.0); Eos # (Auto) 0.4 th/mm3 (0.0-0.4); Eos % (Auto) 2.4 % (0.0-4.0); Hematocrit 37.8 % (39.0-51.0); Hemoglobin 12.6 gm/dL (13.0-17.0); Lymph # (Auto) 3.6 th/mm3 (1.0-4.8); Lymph % (Auto) 22.7 % (9.0-44.0); Mean Corpuscular HGB Conc 33.3 % (32.0-36.0); Mean Corpuscular Hemoglobin 28.9 pg (27.0-34.0); Mean Corpuscular Volume 86.8 fL (80.0-100.0); Mean Platelet Volume 7.5 fL (7.0-11.0); Mono % (Auto) 12.6 % (0.0-8.0); Neut # (Auto) 9.7 th/mm3 (1.8-7.7); Neut % (Auto) 61.1 % (16.0-70.0); Platelet Count 712 th/mm3 (150-450); Red Blood Count 4.35 mil/mm3 (4.50-5.90); Red Cell Distribution Width 13.6 % (11.6-17.2); White Blood Count 15.9 th/mm3 (4.0-11.0)
[2017-09-28 04:44] LABS: Albumin 2.9 g/dL (3.4-5.0); Anion Gap 8 meq/L (5-15); Aspartate Aminotransferase 35 U/L (15-37); Blood Urea Nitrogen 10 mg/dL (7-18); Calcium 8.2 mg/dL (8.5-10.1); Carbon Dioxide 27.5 meq/L (21.0-32.0); Chloride 103 meq/L (98-107); Glomerular Filtration Rate Greater Than 89 mL/min (>89); Glucose,Random 161 mg/dL (74-106); Potassium 4.1 meq/L (3.5-5.1); Sodium 138 meq/L (136-145)
[2017-09-28 04:48] LABS: Alanine Aminotransferase 103 U/L (12-78); Alkaline Phosphatase 169 U/L (45-117); Total Protein 7.5 g/dL (6.4-8.2)
[2017-09-28 05:14] LABS: Eosinophils 3 % (0-4); Lymphocytes 22 % (9-44); Metamyelocytes 5 % (0-1); Monocytes 11 % (0-8)
[2017-09-28 05:15] LABS: Platelet Morphology Normal (Normal); RBC Morphology Normal (Normal); Toxic Granulation 1+
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
[2017-09-28] MEDS: Famotidine PF Inj 20 MG/2 ML Vial IV.PUSH SCH ×2 (09:19→21:57)
[2017-09-28] MEDS: Enoxaparin Inj 30 MG/0.3 ML Syringe SQ SCH ×2 (09:20→21:56)
[2017-09-28] MEDS ORDERED: Diatrizoate Meglum/Diatrizoate Sod Liq 120 ML Bottle (for RAD diag) PO ONE (10:00)
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
[2017-09-28] MEDS: Heparin Central Flush 100 UNIT/ML 5 ML Syringe IV.FLUSH SCH (16:38)
[2017-09-28] MEDS: Multivitamin Inj 5 ML, Folic Acid Inj 0.5 MG in AA 4.25 %/D25W - Electrolytes 1,000 ML IV.SIG SCH (21:23)
[2017-09-29] MEDS: Ciprofloxacin 200 MG/100 ML 200 MG/100 ML PIGGYBACK IV.SIG SCH ×3 (02:17→14:04)
[2017-09-29] MEDS: Enoxaparin Inj 30 MG/0.3 ML Syringe SQ SCH ×2 (09:21→20:59)
[2017-09-29] MEDS: Heparin Central Flush 100 UNIT/ML 5 ML Syringe IV.FLUSH SCH (09:23)
[2017-09-29] MEDS: Famotidine PF Inj 20 MG/2 ML Vial IV.PUSH SCH ×2 (09:23→20:57)
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
--- NOTE | 2017-09-29 16:33 | P.PNWCN ---
Wound/Pressure Injury - Patient Status Premedicated for Pain Prior to Dressing Change: No - Wound Right Abdomen Wound Assessment: Ongoing Wound Type: Puncture Is This a Chronic Wound: No Requested from Provider a Wound Care Consult: No Wound Bed Appearance: [place] Surrounding Tissue Appearance: [place] Surrounding Tissue Temperature: Warm Dressing Status: Dry & Intact Wound Packing Type: Gauze Pads Primary Dressing: Gauze Pad Cover Dressing: Adhesive Dressing Right Lower Abdomen Wound Assessment: Ongoing Wound Type: Traumatic Wound Is This a Chronic Wound: No Wound Bed Appearance: [place] Surrounding Tissue Appearance: Zearing Surrounding Tissue Temperature: Warm Drainage Description: Serous Drainage Amount: Minimal Drainage Odor: No Odor Dressing Status: Dry & Intact Cleansing Solution: Saline Primary Dressing: Optifoam Ag Cover Dressing: OPTIFOAM Support Dressing: Abdominal Binder Wound Dressing Change Date: 09/25/17 Right Upper Abdomen Wound Assessment: Ongoing Wound Type: Traumatic Wound Is This a Chronic Wound: No Wound Bed Appearance: [place] Surrounding Tissue Temperature: Warm Drainage Amount: None Drainage Odor: No Odor Dressing Status: Open to Air Midline abdomen Wound Assessment: Ongoing Wound Type: Traumatic Wound Is This a Chronic Wound: No Requested from Provider a Wound Care Consult: No Length: 19 Width: 5.4 Depth: 2.1 Wound Bed Appearance: [place]earing, Red, White Surrounding Tissue Appearance: [place] Surrounding Tissue Temperature: Warm Drainage Description: Serosanguinous Drainage Amount: Minimal Drainage Odor: No Odor Dressing Status: Dry & Intact Wound Packing Type: Woundvac Sponge Primary Dressing: Negative Pressure Wound Dressing Cover Dressing: Film Dressing Support Dressing: Abdominal Binder Wound Dressing Change Date: 09/25/17 Wound Vac - Wound Vac Right Abdomen Other Foam Type: Adaptic gauze Midline abdomen Pressure Setting (mmHg): 125 Mode Setting: Continuous Drainage Description: Serosanguinous Foam type: Black Other Foam Type: Adaptic gauze - Additional Information Patient was seen today by aligner typewriter for Wound vac management.Patient refused medication prior to aligner typewriter arrival.Patient alert in bed .Dressing removed from midline abdomen with out difficulty.Wound cleansed with normal saline pat dry .Measurements obtained wound currently measures 19.8cm x 4.7cm x 2.3cm wound base is 90% beefy red granular tissue 10% fascia.Patient noted to have 3 tunnels karen at proximal wound tunnels from proximal to distal tunnel #1 straight in depth 2.1cm , #2 3.2cm , #3 1.4cm.Scant white exudate noted . Skin prep applied to periwound and drape applied to intact skin 2 pieces of adaptic gauze placed in wound base and 2 piece of black foam applied over and secured with drape.Track pad applied on distal wound and suction started @ 125 mmHg low continuous suction with no leaks noted. Wound Drain - Drain Medial Abdomen Hemovac Drainage Description: Serosanguinous Drainage Odor: None/Absent # 1 Right Abdomen Drainage Description: Green Drainage Odor: Mild Odor - Additional Information Dressing changed to right abdomen LORENA drain Optifoam AG split and applied please change daily. Incision - Patient Status Premedicated for Pain Prior to Dressing Change: No - Incision Midline Chest Incision Type: Incision Incision Description: Open Primary Dressing: Negative Pressure Wound Dressing (1 sponge) Cover Dressing: Adhesive Dressing Right Chest Incision Type: Incision Primary Dressing: Gauze Pad Tape Type: medipore Midline Abdomen Incision Assessment: Ongoing Incision Type: Incision Drainage Amount: None Incision Dressing Status: Dry & Intact Incision Packing Type: Woundvac Sponge Primary Dressing: Transparent Support Dressing: Abdominal Binder
[2017-09-29] MEDS: Multivitamin Inj 5 ML, Folic Acid Inj 0.5 MG in AA 4.25 %/D25W - Electrolytes 1,000 ML IV.SIG SCH (20:58)
[2017-09-30] MEDS: Ciprofloxacin 200 MG/100 ML 200 MG/100 ML PIGGYBACK IV.SIG SCH ×2 (01:50→13:59)
[2017-09-30] MEDS: Enoxaparin Inj 30 MG/0.3 ML Syringe SQ SCH ×2 (08:33→20:29)
[2017-09-30] MEDS: Famotidine PF Inj 20 MG/2 ML Vial IV.PUSH SCH ×2 (08:33→20:28)
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
[2017-09-30] MEDS: Heparin Central Flush 100 UNIT/ML 5 ML Syringe IV.FLUSH SCH (15:34)
[2017-09-30] MEDS: Multivitamin Inj 5 ML, Folic Acid Inj 0.5 MG in AA 4.25 %/D25W - Electrolytes 1,000 ML IV.SIG SCH (20:27)
[2017-10-01] MEDS: Ciprofloxacin 200 MG/100 ML 200 MG/100 ML PIGGYBACK IV.SIG SCH (02:17)
[2017-10-01] MEDS: Enoxaparin Inj 30 MG/0.3 ML Syringe SQ SCH ×2 (09:00→20:48)
[2017-10-01] MEDS: Famotidine PF Inj 20 MG/2 ML Vial IV.PUSH SCH ×2 (09:00→20:47)
[2017-10-01] MEDS: Heparin Central Flush 100 UNIT/ML 5 ML Syringe IV.FLUSH SCH (09:02)
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
[2017-10-02 04:30] LABS: Baso # (Auto) 0.1 th/mm3 (0.0-0.2); Baso % (Auto) 0.4 % (0.0-2.0); Eos # (Auto) 0.3 th/mm3 (0.0-0.4); Eos % (Auto) 2.2 % (0.0-4.0); Hematocrit 36.2 % (39.0-51.0); Lymph % (Auto) 23.2 % (9.0-44.0); Mean Corpuscular HGB Conc 33.1 % (32.0-36.0); Mean Corpuscular Hemoglobin 28.9 pg (27.0-34.0); Mean Corpuscular Volume 87.3 fL (80.0-100.0); Mean Platelet Volume 8.2 fL (7.0-11.0); Mono # (Auto) 1.3 th/mm3 (0.0-0.9); Mono % (Auto) 10.3 % (0.0-8.0); Neut # (Auto) 8.2 th/mm3 (1.8-7.7); Neut % (Auto) 63.9 % (16.0-70.0); Platelet Count 443 th/mm3 (150-450); Red Blood Count 4.15 mil/mm3 (4.50-5.90); Red Cell Distribution Width 14.1 % (11.6-17.2); White Blood Count 12.8 th/mm3 (4.0-11.0)
[2017-10-02 04:55] LABS: Calcium 8.7 mg/dL (8.5-10.1); Carbon Dioxide 27.9 meq/L (21.0-32.0); Potassium 4.2 meq/L (3.5-5.1)
[2017-10-02 05:54] LABS: Platelet Estimate Normal (Normal); Platelet Morphology Normal (Normal)
[2017-10-02] MEDS: Enoxaparin Inj 30 MG/0.3 ML Syringe SQ SCH ×2 (09:09→20:27)
[2017-10-02] MEDS: Famotidine PF Inj 20 MG/2 ML Vial IV.PUSH SCH ×2 (09:09→20:27)
[2017-10-02] MEDS: Heparin Central Flush 100 UNIT/ML 5 ML Syringe IV.FLUSH SCH (09:11)
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
--- NOTE | 2017-10-02 12:29 | P.PNWCN ---
Wound/Pressure Injury - Patient Status Premedicated for Pain Prior to Dressing Change: No - Wound Right Lower Abdomen Primary Dressing: Optifoam Ag Wound Dressing Change Date: 09/25/17 Midline abdomen Wound Assessment: Ongoing Wound Type: Traumatic Wound Is This a Chronic Wound: No Requested from Provider a Wound Care Consult: No Length: 18.3 Width: 3.8 Depth: 2.1 Wound Bed Appearance: Red, White Surrounding Tissue Appearance: [place] Surrounding Tissue Temperature: Warm Drainage Description: Serosanguinous Drainage Amount: Minimal Drainage Odor: No Odor Dressing Status: Changed Cleansing Solution: Saline Wound Packing Type: Gauze Pads Primary Dressing: Gauze Pad Cover Dressing: Adhesive Dressing Support Dressing: Abdominal Binder Wound Dressing Change Date: 10/02/17 - Additional Information Patient was seen today by creative services writer for wound vac removal .Wound vac and sponge removed with out difficulty wound cleansed with normal saline pat dry moistened fluffed gauze applied to wound bed and covered with dry absorbant dressing.Dressing signed and dated. Wound Vac - Wound Vac Right Abdomen Other Foam Type: Adaptic gauze Midline abdomen Other Foam Type: Adaptic gauze Wound Vac Discontinue Date: 10/02/17 Wound Vac Discontinue Time: 12:23 Wound Vac DC'd by: Sree Wound Drain - Drain Medial Abdomen Hemovac Drainage Description: Serosanguinous Drainage Odor: None/Absent # 1 Right Abdomen Drainage Description: Rodriguez Drainage Odor: None/Absent - Additional Information Dressing changed to right abdomen LORENA drain Optifoam AG split and applied please change daily. Incision - Patient Status Premedicated for Pain Prior to Dressing Change: No
[2017-10-03] MEDS: Enoxaparin Inj 30 MG/0.3 ML Syringe SQ SCH ×2 (08:03→21:10)
[2017-10-03] MEDS: Famotidine PF Inj 20 MG/2 ML Vial IV.PUSH SCH ×2 (08:03→21:11)
[2017-10-03] MEDS: Heparin Central Flush 100 UNIT/ML 5 ML Syringe IV.FLUSH SCH (08:04)
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
[2017-10-04] MEDS: Enoxaparin Inj 30 MG/0.3 ML Syringe SQ SCH ×2 (08:20→21:04)
[2017-10-04] MEDS: Famotidine PF Inj 20 MG/2 ML Vial IV.PUSH SCH ×2 (08:21→21:04)
[2017-10-04] MEDS: Heparin Central Flush 100 UNIT/ML 5 ML Syringe IV.FLUSH SCH (08:21)
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
[2017-10-05 04:25] LABS: Baso # (Auto) 0.1 th/mm3 (0.0-0.2); Baso % (Auto) 0.5 % (0.0-2.0); Eos # (Auto) 0.3 th/mm3 (0.0-0.4); Eos % (Auto) 2.2 % (0.0-4.0); Hematocrit 35.6 % (39.0-51.0); Hemoglobin 11.8 gm/dL (13.0-17.0); Lymph # (Auto) 2.5 th/mm3 (1.0-4.8); Mean Corpuscular HGB Conc 33.1 % (32.0-36.0); Mean Corpuscular Hemoglobin 28.8 pg (27.0-34.0); Mean Corpuscular Volume 86.8 fL (80.0-100.0); Mean Platelet Volume 7.8 fL (7.0-11.0); Mono # (Auto) 1.4 th/mm3 (0.0-0.9); Mono % (Auto) 11.3 % (0.0-8.0); Neut # (Auto) 8.2 th/mm3 (1.8-7.7); Platelet Count 364 th/mm3 (150-450); Red Cell Distribution Width 13.9 % (11.6-17.2); White Blood Count 12.4 th/mm3 (4.0-11.0)
[2017-10-05 04:45] LABS: Calcium 8.6 mg/dL (8.5-10.1); Potassium 4.1 meq/L (3.5-5.1)
[2017-10-05] MEDS: Famotidine PF Inj 20 MG/2 ML Vial IV.PUSH SCH (08:26)
[2017-10-05] MEDS: Enoxaparin Inj 30 MG/0.3 ML Syringe SQ SCH (08:26)
[2017-10-05 08:33] VITALS: RESP 16
[2017-10-05] MEDS: Heparin Central Flush 100 UNIT/ML 5 ML Syringe IV.FLUSH SCH (08:33)
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
[2017-10-05 16:29] VITALS: TEMP 98.1
[2017-10-05 16:30] VITALS: BP 120/64; PULSE 85; O2SAT 98
[2017-10-07 09:36] LABS: Fluid Type ND (()); Lipase, Body Fluid ND U/L (())
== END 2017-10-05 13:41 | disposition home or self-care (01) ==
LOC: NEPI 01:59 → MERGE 02:30 → NEDA 02:30 → N03 02:47 → N06 09-19 18:46
PROVIDERS: ADMIT Surgery; ATTEND Surgery